=== PATIENT | male | born 1980 | race Hispanic/Latino ===

== ENCOUNTER 2016-04-26 09:30 | Outpatient (CLI) | payer SELFPAY ==
[~2016-04-26] VITALS: Ht 167.6 cm; Wt 66.2 kg
== END 2016-04-26 09:59 ==
LOC: PREOP 09:30
PROVIDERS: ATTEND Surgery
DX: Z01.818 Encounter for other preprocedural examination (principal); R10.32 Left lower quadrant pain

== ENCOUNTER 2016-04-30 08:44 | Day surgery (SDC) | payer OTHER ==
[~2016-04-30] VITALS: Ht 167.6 cm; Wt 66.2 kg
[2016-04-30] MEDS ORDERED: NS IV 1000 ML 1,000 ML ONE (08:51)
--- NOTE | 2016-04-30 09:17 | Progress Note-Pre Operative ---
Pre-Operative Progress Note H&P Reviewed The H&P was reviewed, patient examined and no changes noted. Date H&P Reviewed: Apr 30, 2016 Time H&P Reviewed: 09:16 Pre-Operative Diagnosis: left lower quadrant abdominal pain CHRISTOPHER SAMAYOA DO Apr 30, 2016 9:17 am
[2016-04-30] MEDS ORDERED: NS IV 1000 ML 1,000 ML IV STA (09:33)
[2016-04-30 09:38] VITALS: BP 127/81
[2016-04-30] MEDS ORDERED: PROPOFOL INJECTION 50 ML IV ONE (10:10)
[2016-04-30] MEDS ORDERED: MIDAZOLAM 2 MG/2 ML (VERSED) VIAL ONE (10:11)
--- NOTE | 2016-04-30 10:58 | Progress Note-Post Operative ---
Post-Operative Progess Note Pre-Operative Diagnosis left lower quadrant abdominal pain Post-Operative Diagnosis normal colon Post-Op Procedure Note Date of Procedure: Apr 30, 2016 Name of Procedure: colonoscopy Procedure Note/Findings see note Anesthesia Type per pedorthist Estimated blood loss (mL): none Specimen(s) collected none CHRISTOPHER SAMAYOA DO Apr 30, 2016 10:58 am
[2016-04-30 11:10] VITALS: BP 101/63
--- NOTE | 2016-04-30 11:23 | Discharge Inst-Simple/Standard ---
Discharge Inst-Standard Patient Instructions/Follow Up Plan of Care/Instructions/FU: follow up with Dr. Briceno as needed. Follow up with PCP Activity as Tolerated: Yes Discharge Diet: No Restrictions SERGIO VEE APRN Apr 30, 2016 11:23
[2016-04-30 11:40] VITALS: BP 120/80
[2016-04-30 11:48] VITALS: BP 120/80
--- NOTE | 2016-04-30 13:20 | OPERATIVE REPORT ---
PROCEDURE PHYSICIAN: CHRISTOPHER SAMAYOA DATE OF PROCEDURE: 04/30/2016 PREOPERATIVE DIAGNOSIS: Left lower quadrant abdominal pain. POSTOPERATIVE DIAGNOSIS: Normal colon. PROCEDURE: Colonoscopy. SURGEON: Kaity. ANESTHESIA: Per SCHEDULING ANALYST. ESTIMATED BLOOD LOSS: None. COMPLICATIONS: None. INDICATIONS: The patient is a 35-year-old male who has been having left lower quadrant abdominal pain. The patient has had previous colonoscopy in a [facility] multiple years ago when he was having similar pain which he reports that he think they found something at that time, but was unsure of the exact findings. The patient was explained risk and benefits of the procedure and wishes to proceed with the procedure. Consent was signed on chart. PROCEDURE: The patient was taken to the endoscopy suite, placed in left lateral recumbent position. Timeout was performed. Digital rectal exam was performed. There were no palpable polyps, masses or ulcerations. The scope was inserted in the rectum and advanced all of the way to the cecum with minimal difficulty. The prep was adequate. The scope was then slowly retracted back. There were no polyps, masses, ulcerations within the cecum, ascending, transverse, descending and sigmoid colon. Once in the rectum, the scope was also retroflexed noting no further pathology. The scope was returned to its normal position and slowly withdrawn until completely removed noting no further pathology. RECOMMENDATIONS: The patient with normal colonoscopy. We will have him resume normal screening guidelines beginning at the age of 50. If the patient has any problems prior to that, he should be reevaluated. We will have him follow-up with his regular primary care physician, Dr. Ruiz and Joanne Boo. Job ID: [id number] Dictated Date: 04/30/2016 11:02:38 Orange Picker Machine Operator Date: 04/30/2016 13:14:09 / maria ines
== END 2016-04-30 11:53 | disposition home or self-care (01) ==
LOC: SDC 08:44
PROVIDERS: ATTEND Surgery
DX: R10.32 Left lower quadrant pain (principal)